=== PATIENT | female | born 1980 | race Caucasian/White ===

== ENCOUNTER → 2018-02-28 | Outpatient (CLI) | payer BC ==
--- NOTE | 2018-03-03 08:36 | MM ---
Reason for exam: screening (asymptomatic). Baseline mammogram. History: Patient had first child at age 31. Took hormonal contraceptives for 12 years. Physical Findings: Nurse did not find any significant physical abnormalities on exam. MG 3D Screening Mammo W/Cad Bilateral CC and MLO view(s) were taken. The breast tissue is extremely dense which could obscure a lesion on mammography. Finding: There are typically benign diffuse/scattered calcifications in both breasts with no suspicious groups. No suspicious abnormality. These results were verbally communicated with the patient and result sheet given to the patient on 02/28/18. ASSESSMENT: Benign, BI-RAD 2 RECOMMENDATION: Routine screening mammogram of both breasts in 1 year.
== END | disposition home or self-care (01) ==
LOC: RADMAMWWP 13:34
PROVIDERS: ATTEND Family Medicine
DX: Z12.31 Encounter for screening mammogram for malignant neoplasm of breast (principal)
CPT/HCPCS: 77063; 77067

== ENCOUNTER → 2019-04-16 | Outpatient (CLI) | payer BC ==
--- NOTE | 2019-04-17 10:53 | ECHOF ---
Referral Reason:R002. palpitations, R94.31 abnormal ekg MEASUREMENTS -------- HEIGHT: 165.1 cm WEIGHT: 79.4 kg BP: RVIDd: 2.3 cm (< 3.3) IVSd: 0.8 cm (0.6 - 1.1) LVIDd: 4.5 cm (3.9 - 5.3) LVPWd: 0.9 cm (0.6 - 1.1) IVSs: 1.1 cm LVIDs: 3.2 cm LVPWs: 1.0 cm LA Diam: 2.3 cm (2.7 - 3.8) LAESV Index (A-L): 17.73 ml/m Ao Diam: 2.8 cm (2.0 - 3.7) AV Cusp: 1.8 cm (1.5 - 2.6) LA Diam: 2.8 cm (2.7 - 3.8) MV EXCURSION: 18.330 mm (> 18.000) MV EF SLOPE: 103 mm/s (70 - 150) EPSS: 0.2 cm MV E Waqar: 0.52 m/s MV DecT: 189 ms MV A Waqar: 0.47 m/s MV E/A Ratio: 1.10 RAP: 5.00 mmHg RVSP: 21.42 mmHg FINDINGS -------- Sinus rhythm. This was a technically good study. LV size, wall thickness and systolic function are normal, with an EF greater than 55%. The left irena tricular size is normal. The right ventricle is normal in size. The left atrial size is normal. Normal LA size by volume 22+/-6 ml/m2. The right atrial size is normal. The aortic valve is trileaflet, and appears structurally normal. No aortic stenosis or regurgitation. There is trace mitral regurgitation. Trace tricuspid regurgitation present. There is no evidence of pulmonary hypertension. The right ventricular systolic pressure, as measured by Doppler, is 21.42mmHg. There is no pulmonic regurgitation present. The aortic root size is normal. There is no pericardial effusion. CONCLUSIONS -------- 1. LV size, wall thickness and systolic function are normal, with an EF greater than 55%. 2. The left ventricular size is normal. 3. The right ventricle is normal in size. 4. The left atrial size is normal. 5. Normal LA size by volume 22+/-6 ml/m2. 6. The right atrial size is normal. 7. The aortic valve is trileaflet, and appears structurally normal. No aortic stenosis or regurgitati on. 8. There is trace mitral regurgitation. 9. Trace tricuspid regurgitation present. 10. There is no evidence of pulmonary hypertension. 11. The right ventricular systolic pressure, as measured by Doppler, is 21.42mmHg. 12. There is no pulmonic regurgitation present. 13. The aortic root size is normal. 14. There is no pericardial effusion. OVEREDGE SEWER: Edilia Johnson RDCS
== END | disposition home or self-care (01) ==
LOC: RADECHMAIN 11:30
PROVIDERS: ATTEND Family Medicine
DX: R00.2 Palpitations (principal); R94.31 Abnormal electrocardiogram [ECG] [EKG]
CPT/HCPCS: 93306

== ENCOUNTER → 2019-04-21 | Outpatient (CLI) | payer BC ==
--- NOTE | 2019-04-23 11:45 | MM ---
Reason for exam: screening (asymptomatic). Last mammogram was performed 1 year and 2 months ago. History: Patient had first child at age 31. Took hormonal contraceptives for 12 years. Physical Findings: A clinical breast exam by your physician is recommended on an annual basis and results should be correlated with mammographic findings. MG 3D Screening Mammo W/Cad Bilateral CC and MLO view(s) were taken. Prior study comparison: February 28, 2018, bilateral MG 3d screening mammo w/cad. The breast tissue is extremely dense which could obscure a lesion on mammography. No significant changes when compared with prior studies. ASSESSMENT: Benign, BI-RAD 2 RECOMMENDATION: Routine screening mammogram of both breasts in 1 year.
== END | disposition home or self-care (01) ==
LOC: RADMAMWWP 14:33
PROVIDERS: ATTEND Obstetrics & Gynecology
DX: Z12.31 Encounter for screening mammogram for malignant neoplasm of breast (principal)
CPT/HCPCS: 77063; 77067

== ENCOUNTER → 2020-05-16 | Outpatient (CLI) | payer BC ==
--- NOTE | 2020-05-17 13:34 | MM ---
Reason for exam: screening (asymptomatic). Last mammogram was performed 1 year and 1 month ago. History: Patient had first child at age 31. Took hormonal contraceptives for 12 years. Physical Findings: A clinical breast exam by your physician is recommended on an annual basis and results should be correlated with mammographic findings. MG 3D Screening Mammo W/Cad Bilateral CC, MLO, and XCCL view(s) were taken. Prior study comparison: April 21, 2019, bilateral MG 3d screening mammo w/cad. February 28, 2018, bilateral MG 3d screening mammo w/cad. The breast tissue is heterogeneously dense. This may lower the sensitivity of mammography. 3D images with distortion 11-12 o'clock right breast posteriorly. Nodular prominence superior left MLO view. ASSESSMENT: Incomplete: need additional imaging evaluation, BI-RAD 0 RECOMMENDATION: Special view mammogram of both breasts. (3D) If lesion persists on supplemental views, image directed ultrasound is recommended. [facility] will attempt to contact patient to return for supplemental views and ultrasound if indicated.
== END | disposition home or self-care (01) ==
LOC: RADMAMWWP 16:36
PROVIDERS: ATTEND Family Medicine
DX: Z12.31 Encounter for screening mammogram for malignant neoplasm of breast (principal)
CPT/HCPCS: 77063; 77067

== ENCOUNTER → 2020-05-25 | Outpatient (CLI) | payer BC ==
--- NOTE | 2020-05-25 10:24 | MM ---
Reason for exam: additional evaluation requested from abnormal screening. Last mammogram was performed less than 1 month ago. History: Patient had first child at age 31. Took hormonal contraceptives for 12 years. Physical Findings: Nurse did not find any significant physical abnormalities on exam. MG 3D Work Up W/Cad GABRIELA Bilateral spot compression MLO and LM view(s) were taken. Spot compression CC view(s) were taken of the right breast. Prior study comparison: May 16, 2020, bilateral MG 3d screening mammo w/cad. April 21, 2019, bilateral MG 3d screening mammo w/cad. The breast tissue is heterogeneously dense. This may lower the sensitivity of mammography. Central distortion persists on spot 3D CC, less defined on spot 3D MLO, and not well seen on 3D lateral. Subtle 1.4cm low density nodularity superior left MLO possibly 11 o'clock. These results were verbally communicated with the patient and result sheet given to the patient on 05/25/20. ASSESSMENT: Incomplete: need additional imaging evaluation, BI-RAD 0 RECOMMENDATION: Ultrasound of both breasts.
--- NOTE | 2020-05-25 10:26 | USB ---
Reason for exam: additional evaluation requested from abnormal screening. History: Patient had first child at age 31. Took hormonal contraceptives for 12 years. US Breast Workup Limited GABRIELA Technologist: Charley Butler Right complete breast ultrasound includes all four quadrants, the retroareolar region and axilla. Finding demonstrates no cystic or solid lesion seen. Left limited breast ultrasound including focal area of concern, retroareolar and axilla demonstrates no cystic or solid lesion seen. Scanned whole right breast. Scanned 9-3 o'clock on the left. These results were verbally communicated with the patient and result sheet given to the patient on 05/25/20. ASSESSMENT: Suspicious, BI-RAD 4 RECOMMENDATION: Stereotactic core biopsy of the right breast. (3D/tomosynthesis guided right breast biopsy) Called Dr. Parker's office with mammographic findings and has scheduled an appointment for the patient for 06/01/20 at 3:[address] Mills. PRELIMINARY REPORT CALLED AND FAXED TO DR. MILLS ON 05/25/20.
== END | disposition home or self-care (01) ==
LOC: RADMAMWWP 08:18
PROVIDERS: ATTEND Family Medicine
DX: R92.8 Other abnormal and inconclusive findings on diagnostic imaging of breast (principal)
CPT/HCPCS: 77062; 77066

== ENCOUNTER → 2020-06-01 | Outpatient (CLI) | payer BC ==
[2020-06-01 15:25] VITALS: BP 132/91; PULSE 76; RESP 16; TEMP 98.3
--- NOTE | 2020-06-01 15:42 | P.GSHP ---
History of Present Illness H&P Date: 06/01/20 Chief Complaint: Abnormal right breast mammogram Susie is a 40 year-old white female seen in consultation for Dr. Parker [place] [address]. This was felt to be incomplete and additional imaging was recommended. They were concerns about the 11 to 12 o'clock position in the right breast posteriorly and a nodular prominence in the superior left breast. On 9920 bilateral diagnostic mammograms were performed. This revealed a 1.4 cm low density in the superior left breast at 11:00. Bilateral breast ultrasounds were recommended. These were performed on the same day. Breast ultrasound did not reveal any cystic or solid lesions of concern in either breast. It was felt that the findings were suspicious BIRADS 4 on the 3D eright breast and and stereotactic core biopsy of the right breast was recommended. 6 monthe follow up of hte left breast recommended after review with Dr. Ralph. The patient has not noted any lumps masses or nodules in either breast. She is not complaining of any skin changes or nipple discharge of concern. She had some mild mastitis in the past when she was breast-feeding many years ago this was in both breasts. She has not had any recent trauma or infection in the breast. Caffeine: 2 cups of coffee/day Nicotine: Stopped smoking 15 years ago Theophylline: Occasional Family history: sister: lymphoma maternal grandmother: melanoma metastatic Hormonal history: Menarche: 12 , breast fed: yes, age at first : 31 periods regular BCP: stopped 10 years ago used for 10 years hormones: none Surgical history: 1. Tubes in ears 2. egg RETRIEVAL medical history: none nicotine: none Alcohol: Occasional Drugs: Negative - Constitutional Constitutional: Denies chills, Denies fever - EENT Eyes: denies blurred vision, denies pain Ears: deny: decreased hearing, tinnitus Ears, nose, mouth and throat: Denies headache, Denies sore throat - Breasts Breasts: bilateral: as per HPI - Cardiovascular Cardiovascular: Denies chest pain, Denies shortness of breath - Respiratory Respiratory: Denies cough, Denies 7 - Gastrointestinal Gastrointestinal: Denies abdominal pain, Denies diarrhea, Denies nausea, Denies vomiting - Genitourinary (Female) Genitourinary: Denies dysuria, Denies hematuria - Menstruation Menstruation: Reports period normal - Musculoskeletal Musculoskeletal: Denies myalgias - Integumentary Integumentary: Denies pruritus, Denies rash - Neurological Neurological: Denies numbness, Denies weakness - Psychiatric Psychiatric: Reports anxiety, Reports depression - Endocrine Endocrine: Reports weight change, Denies fatigue - Hematologic/Lymphatic Comment: none - Allergic/Immunologic Comment: none Medications and Allergies Allergies Allergy/AdvReac Type Severity Reaction Status Date / Time No Known Allergies Allergy Verified 05/25/20 09:02 Surgical - Exam BMI 27.4 - General well developed, well nourished, no distress - Eyes normal ocular movement - ENT no hearing loss, no congestion - Neck no masses, trachea midline - Respiratory normal respiratory effort, clear to auscultation - Cardiovascular Rhythm: regular Heart Sounds: normal: S1, S2 - Abdomen Abdomen: soft, non tender, no guarding, no rigid, no rebound - Integumentary normal turgor - Neurologic no disoriented, no combative - Musculoskeletal normal gait, normal posture - Psychiatric oriented to time, oriented to person, oriented to place, speech is normal, memory intact Breast exam: BRA 36B inspection: grade 2 ptosis bilateral Palpation: Right breast: Multi-positional exam fibrocystic changes, no dominant masses or nodules of concern, Right axilla: No adenopathy of concern Left breast: Multi-positional exam fibrocystic changes, no dominant masses or nodules of concern Left axilla: No adenopathy of concern Results Mammogram and ultrasound reviewed with Dr. Ralph from radiology Assessment and Plan Assessment: Impression: 1. 3-D radiographic abnormality right breast 11 to 12 o'clock position 2. Left breast dense breast tissue superior nodularity to be followed with repeat left breast mammogram in 6 months Plan: 1. 3-D stereotactic right breast biopsy 2. Left breast mammogram in 6 months with physician exam at that time Risks and benefits of procedure discussed with the patient. She wishes to proceed. She understands risks include but are not limited to bleeding, infection, reaction to the anesthetic. In addition inability to visualize the spot again may result and no biopsy been performed and repeat mammogram in 6 months time. Cc: Dr. Parker encounter 35 minutes, > 50% of time in planning and counselling
== END | disposition home or self-care (01) ==
LOC: WWCWWP 14:55
PROVIDERS: ATTEND Surgery
DX: Z53.9 Procedure and treatment not carried out, unspecified reason (principal)

== ENCOUNTER → 2020-06-24 | Outpatient (CLI) | payer BC ==
[2020-06-24 14:37] VITALS: BP 152/103; PULSE 94; RESP 12; TEMP 98.2
--- NOTE | 2020-06-24 14:55 | P.PN ---
Subjective Progress Note Date: 06/24/20 Principal diagnosis: Radial scar right breast and stereotactic core biopsy Susie is a 40 year-old white female seen in consultation for Dr. Parker [place] [address]. This was felt to be incomplete and additional imaging was recommended. They were concerns about the 11 to 12 o'clock position in the right breast posteriorly and a nodular prominence in the superior left breast. On 9920 bilateral diagnostic mammograms were performed. This revealed a 1.4 cm low density in the superior left breast at 11:00. Bilateral breast ultrasounds were recommended. These were performed on the same day. Breast ultrasound did not reveal any cystic or solid lesions of concern in either breast. It was felt that the findings were suspicious BIRADS 4 on the 3D eright breast and and stereotactic core biopsy of the right breast was recommended. 6 monthe follow up of hte left breast recommended after review with Dr. Ralph. The patient has not noted any lumps masses or nodules in either breast. She is not complaining of any skin changes or nipple discharge of concern. She had some mild mastitis in the past when she was breast-feeding many years ago this was in both breasts. She has not had any recent trauma or infection in the breast. [place] [address]. Pathology revealed breast tissue with portions of radial scar and fibrocystic changes with moderate to florid intraductal hyperplasia. She tolerated the procedure well with no complaints. Caffeine: 2 cups of coffee/day Nicotine: Stopped smoking 15 years ago Theophylline: Occasional Family history: sister: lymphoma maternal grandmother: melanoma metastatic Hormonal history: Menarche: 12 , breast fed: yes, age at first : 31 periods regular BCP: stopped 10 years ago used for 10 years hormones: none Surgical history: 1. Tubes in ears 2. egg RETRIEVAL medical history: none nicotine: none Alcohol: Occasional Drugs: Negative - Constitutional Constitutional: Denies chills, Denies fever - EENT Eyes: denies blurred vision, denies pain Ears: deny: decreased hearing, tinnitus Ears, nose, mouth and throat: Denies headache, Denies sore throat - Breasts Breasts: bilateral: as per HPI - Cardiovascular Cardiovascular: Denies chest pain, Denies shortness of breath - Respiratory Respiratory: Denies cough, Denies 7 - Gastrointestinal Gastrointestinal: Denies abdominal pain, Denies diarrhea, Denies nausea, Denies vomiting - Genitourinary (Female) Genitourinary: Denies dysuria, Denies hematuria - Menstruation Menstruation: Reports period normal - Musculoskeletal Musculoskeletal: Denies myalgias - Integumentary Integumentary: Denies pruritus, Denies rash - Neurological Neurological: Denies numbness, Denies weakness - Psychiatric Psychiatric: Reports anxiety, Reports depression - Endocrine Endocrine: Reports weight change, Denies fatigue - Hematologic/Lymphatic Comment: none - Allergic/Immunologic Comment: none Objective - Vital Signs Vital signs: Vital Signs Temp 98.2 F 06/24/20 14:33 Pulse 94 06/24/20 14:33 Resp 12 06/24/20 14:33 BP 152/103 06/24/20 14:33 Pulse Ox 100 06/24/20 14:33 Intake & Output 06/23/20 06/24/20 06/24/20 18:59 06:59 18:59 Weight 77.111 kg - Exam BMI 27.4 - Constitutional General appearance: Present: average body habitus - EENT Eyes: Present: EOMI ENT: Present: hearing grossly normal - Neck Neck: Present: normal ROM - Respiratory Respiratory: bilateral: CTA - Cardiovascular Rhythm: regular Heart sounds: normal: S1, S2 - Integumentary Integumentary Comment(s): Biopsy site right breast is mild ecchymosis, small hematoma no evidence of any infection Integumentary: Present: normal turgor - Musculoskeletal Musculoskeletal: Present: gait normal - Psychiatric Psychiatric: Present: A&O x's 3, appropriate affect, intact judgment & insight Assessment and Plan Assessment: Impression: 1. Patient status post right breast area tactic core biopsy/radial scar Plan: 1. Needle localization excisional biopsy right breast radial scar, possible mastopexy, possible oncho plastic tissue transfer CC: Dr. Parker In benefits of the procedure discussed with the patient and her . They understand and wish to proceed. This will be scheduled in the near future. encounter 15 minutes > 50% of time in planning and counselling.
== END | disposition home or self-care (01) ==
LOC: WWCWWP 13:52
PROVIDERS: ATTEND Surgery
DX: Z53.9 Procedure and treatment not carried out, unspecified reason (principal)

== ENCOUNTER 2021-08-31 09:18 | Emergency (ER) | payer BC ==
[2021-08-31 09:37] VITALS: TEMP 98.3
--- NOTE | 2021-08-31 10:13 | XR ---
EXAMINATION TYPE: XR chest 2V DATE OF EXAM: 08/31/2021 COMPARISON: None HISTORY: 41-year-old female with chest pain TECHNIQUE: PA and lateral views FINDINGS: The cardiomediastinal silhouette, aorta, and pulmonary vasculature are within normal limits. Lungs an d pleural spaces are clear. IMPRESSION: No acute cardiopulmonary process.
[2021-08-31 10:17] LABS: Basophils % (A) 0 %; Eosinophils # (A) 0.1 k/uL (0-0.7); Eosinophils % (A) 1 %; HCT 45.6 % (34.0-46.0); HGB 15.3 gm/dL (11.4-16.0); Lymphocytes # (A) 1.3 k/uL (1.0-4.8); Lymphocytes % (A) 20 %; MCH 31.4 pg (25.0-35.0); MCHC 33.5 g/dL (31.0-37.0); MCV 93.7 fL (80.0-100.0); Mean Platelet Volume 7.8; Monocytes # (A) 0.5 k/uL (0-1.0); Monocytes % (A) 7 %; Neutrophils # (A) 4.8 k/uL (1.3-7.7); Neutrophils % (A) 70 %; Platelet Count 205 k/uL (150-450); RBC 4.87 m/uL (3.80-5.40); RDW 12.6 % (11.5-15.5); WBC 6.8 k/uL (3.8-10.6)
[2021-08-31] MEDS ORDERED: SODIUM CHLORIDE 0.9% 500 ML 500 ML IV ONE (10:23)
[2021-08-31 10:24] LABS: Potassium 4.3 mmol/L (3.5-5.1)
[2021-08-31 10:26] LABS: ALT 17 U/L (4-34); AST 25 U/L (14-36); African American GFR (CKD) >90 (>60 ml/min/1.73 sqM); Albumin 4.6 g/dL (3.5-5.0); Alkaline Phosphatase 90 U/L (38-126); Anion Gap 7 mmol/L; Blood Urea Nitrogen 16 mg/dL (7-17); Calcium 9.9 mg/dL (8.4-10.2); Carbon Dioxide 29 mmol/L (22-30); Chloride 103 mmol/L (98-107); Glucose 85 mg/dL (74-99); Magnesium 1.8 mg/dL (1.6-2.3); Non-African American GFR(CKD) >90 (>60 ml/min/1.73 sqM); Sodium 139 mmol/L (137-145); Total Bilirubin 0.5 mg/dL (0.2-1.3); Total Protein 7.7 g/dL (6.3-8.2)
[2021-08-31 10:32] LABS: INR 0.9 (<1.2); Partial Thromboplastin Time 23.6 sec (22.0-30.0); Prothrombin Time 9.5 sec (9.0-12.0)
--- NOTE | 2021-08-31 10:48 | ED ---
General Adult HPI - General Chief complaint: Chest Pain Stated complaint: elevated BP Time Seen by Provider: 08/31/21 09:42 Source: patient, RN notes reviewed, old records reviewed Mode of arrival: ambulatory Limitations: no limitations - History of Present Illness Initial comments: 41-year-old female who presents for evaluation of elevated blood pressure. She states that she checked her blood pressure at home and it was around 180 systolic. She did report a mild chest discomfort. No significant pain. She was diagnosed with coronavirus approximately one month ago and had a very mild course. She states that she's had some mildly elevated blood pressure readings over the past one year but is not currently being treated for high blood pressure. She states she has an appointment with her primary care physician this afternoon. She denies nausea vomiting. Denies diaphoresis. Denies lower extremity pain or swelling. - Related Data Home Medications Medication Instructions Recorded Confirmed Desvenlafaxine Succinate [Pristiq 50 mg PO QAM 06/01/20 08/31/21 ER] Minocycline [Minocin] 50 mg PO QAM 06/01/20 08/31/21 Allergies Allergy/AdvReac Type Severity Reaction Status Date / Time sulfamethoxazole Allergy Unknown Verified 08/31/21 10:17 [From ] Childhood trimethoprim [From ] Allergy Unknown Verified 08/31/21 10:17 Childhood Review of Systems ROS Statement: Those systems with pertinent positive or pertinent negative responses have been documented in the HPI. ROS Other: All systems not noted in ROS Statement are negative. Past Medical History Past Medical History: No Reported History Additional Past Medical History / Comment(s): Acne; History of Any Multi-Drug Resistant Organisms: None Reported Additional Past Surgical History / Comment(s): IVF 06/2010; Past Anesthesia/Blood Transfusion Reactions: No Reported Reaction Past Psychological History: Anxiety, Depression Smoking Status: Former smoker Past Alcohol Use History: Daily Past Drug Use History: None Reported - Past Family History Father Family Medical History: Hypertension Mother Family Medical History: No Reported History General Exam Limitations: no limitations General appearance: alert, in no apparent distress Head exam: Present: atraumatic, normocephalic Eye exam: Present: normal appearance, PERRL ENT exam: Present: normal exam Neck exam: Present: normal inspection. Absent: tenderness, meningismus Respiratory exam: Present: normal lung sounds bilaterally. Absent: respiratory distress, wheezes Cardiovascular Exam: Present: regular rate, normal rhythm GI/Abdominal exam: Present: soft. Absent: distended, tenderness Extremities exam: Present: normal inspection, normal capillary refill. Absent: pedal edema, joint swelling Neurological exam: Present: alert, oriented X3, CN II-XII intact. Absent: motor sensory deficit Psychiatric exam: Present: normal affect, normal mood Skin exam: Present: warm, dry, intact. Absent: cyanosis, diaphoretic Course Vital Signs 08/31/21 08/31/21 09:30 11:00 Temperature 98.3 F Pulse Rate 102 H 88 Respiratory 18 18 Rate Blood Pressure 152/103 156/95 O2 Sat by Pulse 99 98 Oximetry EKG Findings - EKG Comments: EKG Findings:: EKG: Normal sinus rhythm, rate of 92, OH interval 170, QRS duration 92, QTC 442, no ST segment elevation. Medical Decision Making - Medical Decision Making 41-year-old female with elevated blood pressure. No formal diagnosis of hypertension but she has had some up trending blood pressures over the past one year. She has mildly elevated blood pressure. Arrival. She had a vague chest discomfort and therefore workup was initiated. EKG was sinus rhythm, chest x- ray clear, she has a normal CBC, normal CMP, negative troponin. I did obtain a d-dimer as this patient recently had coronavirus is also negative. She is reassured. She has an appointment with her primary care physician this afternoon. - Lab Data Result diagrams: 08/31/21 09:58 08/31/21 09:58 Lab Results 08/31/21 08/31/21 08/31/21 Range/Units 09:58 09:58 09:58 WBC 6.8 (3.8-10.6) k/uL RBC 4.87 (3.80-5.40) m/uL Hgb 15.3 (11.4-16.0) gm/dL Hct 45.6 (34.0-46.0) % MCV 93.7 (80.0-100.0) fL MCH 31.4 (25.0-35.0) pg MCHC 33.5 (31.0-37.0) g/dL RDW 12.6 (11.5-15.5) % Plt Count 205 (150-450) k/uL MPV 7.8 Neutrophils % 70 % Lymphocytes % 20 % Monocytes % 7 % Eosinophils % 1 % Basophils % 0 % Neutrophils # 4.8 (1.3-7.7) k/uL Lymphocytes # 1.3 (1.0-4.8) k/uL Monocytes # 0.5 (0-1.0) k/uL Eosinophils # 0.1 (0-0.7) k/uL Basophils # 0.0 (0-0.2) k/uL PT 9.5 (9.0-12.0) sec INR 0.9 (<1.2) APTT 23.6 (22.0-30.0) sec D-Dimer 0.28 (<0.60) mg/L FEU Sodium 139 (137-145) mmol/L Potassium 4.3 (3.5-5.1) mmol/L Chloride 103 (98-107) mmol/L Carbon Dioxide 29 (22-30) mmol/L Anion Gap 7 mmol/L BUN 16 (7-17) mg/dL Creatinine 0.64 (0.52-1.04) mg/dL Est GFR (CKD-EPI)AfAm >90 (>60 ml/min/1.73 sqM) Est GFR (CKD-EPI)NonAf >90 (>60 ml/min/1.73 sqM) Glucose 85 (74-99) mg/dL Calcium 9.9 (8.4-10.2) mg/dL Magnesium 1.8 (1.6-2.3) mg/dL Total Bilirubin 0.5 (0.2-1.3) mg/dL AST 25 (14-36) U/L ALT 17 (4-34) U/L Alkaline Phosphatase 90 (38-126) U/L Troponin I (0.000-0.034) ng/mL NT-Pro-B Natriuret Pep pg/mL Total Protein 7.7 (6.3-8.2) g/dL Albumin 4.6 (3.5-5.0) g/dL 08/31/21 08/31/21 Range/Units 09:58 09:58 WBC (3.8-10.6) k/uL RBC (3.80-5.40) m/uL Hgb (11.4-16.0) gm/dL Hct (34.0-46.0) % MCV (80.0-100.0) fL MCH (25.0-35.0) pg MCHC (31.0-37.0) g/dL RDW (11.5-15.5) % Plt Count (150-450) k/uL MPV Neutrophils % % Lymphocytes % % Monocytes % % Eosinophils % % Basophils % % Neutrophils # (1.3-7.7) k/uL Lymphocytes # (1.0-4.8) k/uL Monocytes # (0-1.0) k/uL Eosinophils # (0-0.7) k/uL Basophils # (0-0.2) k/uL PT (9.0-12.0) sec INR (<1.2) APTT (22.0-30.0) sec D-Dimer (<0.60) mg/L FEU Sodium (137-145) mmol/L Potassium (3.5-5.1) mmol/L Chloride (98-107) mmol/L Carbon Dioxide (22-30) mmol/L Anion Gap mmol/L BUN (7-17) mg/dL Creatinine (0.52-1.04) mg/dL Est GFR (CKD-EPI)AfAm (>60 ml/min/1.73 sqM) Est GFR (CKD-EPI)NonAf (>60 ml/min/1.73 sqM) Glucose (74-99) mg/dL Calcium (8.4-10.2) mg/dL Magnesium (1.6-2.3) mg/dL Total Bilirubin (0.2-1.3) mg/dL AST (14-36) U/L ALT (4-34) U/L Alkaline Phosphatase (38-126) U/L Troponin I <0.012 (0.000-0.034) ng/mL NT-Pro-B Natriuret Pep 78 pg/mL Total Protein (6.3-8.2) g/dL Albumin (3.5-5.0) g/dL Disposition Clinical Impression: Hypertension Disposition: HOME SELF-CARE Condition: Good Instructions (If sedation given, give patient instructions): Hypertension (ED) Is patient prescribed a controlled substance at d/c from ED?: No Referrals: Kelvin Parker DO [Primary Care Provider] - 1-2 days Time of Disposition: 11:06
[2021-08-31 11:20] VITALS: BP 151/98; PULSE 81; RESP 16
== END 2021-08-31 11:20 | disposition home or self-care (01) ==
LOC: EC 09:18
DX: I10 Essential (primary) hypertension (principal); F32.A Depression, unspecified; F41.9 Anxiety disorder, unspecified; Z87.891 Personal history of nicotine dependence; Z79.899 Other long term (current) drug therapy; Z82.49 Family history of ischemic heart disease and other diseases of the circulatory system
CPT/HCPCS: 36415; 71046; 80053; 83735; 83880; 84484; 85025; 85379; 85610; 85730; 93005; 99284

== ENCOUNTER → 2023-01-16 | Outpatient (CLI) | payer BC ==
[2023-01-16 15:49] LABS: Basophils # (A) 0.02 X 10*3/uL (0.00-0.10); Basophils % (A) 0.4 %; Eosinophils # (A) 0.05 X 10*3/uL (0.04-0.35); Eosinophils % (A) 0.9 %; HCT 44.4 % (37.2-46.3); HGB 14.5 g/dL (12.0-15.0); Immature Grans, Automated 0.4 %; Lymphocytes # (A) 1.24 X 10*3/uL (0.90-5.00); Lymphocytes % (A) 22.4 %; MCH 30.5 pg (27.0-32.0); MCHC 32.7 g/dL (32.0-37.0); MCV 93.5 fL (80.0-97.0); Mean Platelet Volume 10.4 fL (9.5-12.2); Monocytes # (A) 0.41 X 10*3/uL (0.20-1.00); Monocytes % (A) 7.4 %; NRBC Per 100 WBC 0 /100 WBCS (0.0-0.0); Neutrophils # (A) 3.79 X 10*3/uL (1.80-7.70); Neutrophils % (A) 68.5 %; Platelet Count 229 X 10*3/uL (140-440); RBC 4.75 X 10*6/uL (4.10-5.20); RDW 12.9 % (11.5-14.5); WBC 5.53 X 10*3/uL (4.50-10.00)
[2023-01-16 16:00] LABS: ALT 22 U/L (8-44); AST 21 U/L (13-35); African American GFR (CKD) 107.9 (60.0-200.0); Albumin 4.6 g/dL (3.8-4.9); Albumin/Globulin Ratio 1.87 (1.60-3.17); Alkaline Phosphatase 96 U/L (41-126); BUN/Creat Ratio 21.28 Ratio (12.00-20.00); Blood Urea Nitrogen 16.6 mg/dL (9.0-27.0); Calcium 10.1 mg/dL (8.7-10.3); Carbon Dioxide 28.2 mmol/L (20.0-27.5); Chloride 100 mmol/L (96-109); Globulin 2.5 g/dL (1.6-3.3); Glucose 84 mg/dL (70-110); LDL Cholesterol,Calculated 121.7 mg/dL (0.0-131.0); Non-African American GFR(CKD) 93.1 (60.0-200.0); Potassium 4.6 mmol/L (3.5-5.5); Sodium 141 mmol/L (135-145); Total Protein 7.1 g/dL (6.2-8.2)
== END | disposition home or self-care (01) ==
LOC: LABWHC1 08:26
PROVIDERS: ATTEND Nurse Practitioner Family
DX: Z00.00 Encounter for general adult medical examination without abnormal findings (principal); I10 Essential (primary) hypertension
CPT/HCPCS: 36415; 80053; 80061; 84443; 85025

== ENCOUNTER 2024-01-04 19:03 | Emergency (ER) | payer BC ==
--- NOTE | 2024-01-04 19:37 | ED ---
ENT HPI <Luigi Serrano - Last Filed: 01/04/24 22:26> - General Source: patient, RN notes reviewed Mode of arrival: ambulatory Limitations: no limitations <Rhianna Warren - Last Filed: 01/04/24 22:59> - General Chief complaint: ENT Stated complaint: Throat pain Time Seen by Provider: 01/04/24 19:15 - History of Present Illness Initial comments: 43-year-old female with no significant past medical history presenting with sore throat x 1 day. Dates she was sent from urgent care for possible right-sided peritonsillar abscess. She is able to swallow and tolerate orals. Denies otalgia, cough, rhinorrhea. Denies fever. States she had a strep test done at the urgent care and was negative. (Rhianna Warren) - Related Data Home Medications Medication Instructions Recorded Confirmed Desvenlafaxine Succinate [Pristiq 50 mg PO QAM 06/01/20 08/31/21 ER] Minocycline [Minocin] 50 mg PO QAM 06/01/20 08/31/21 Previous Rx's Medication Instructions Recorded Amoxicillin 500 mg PO Q12HR 10 Days #20 capsule 01/04/24 Allergies Allergy/AdvReac Type Severity Reaction Status Date / Time sulfamethoxazole Allergy Unknown Verified 01/04/24 19:07 [From Septra] Childhood trimethoprim [From Mayra] Allergy Unknown Verified 01/04/24 19:07 Childhood Review of Systems ROS Other: All systems not noted in ROS Statement are negative. <Luigi Serrano - Last Filed: 01/04/24 22:26> ROS Other: All systems not noted in ROS Statement are negative. <Rhianna Warren - Last Filed: 01/04/24 22:59> ROS Statement: Those systems with pertinent positive or pertinent negative responses have been documented in the HPI. Past Medical History Past Medical History: Hypertension Additional Past Medical History / Comment(s): Acne; History of Any Multi-Drug Resistant Organisms: None Reported Additional Past Surgical History / Comment(s): IVF 06/2010; Past Anesthesia/Blood Transfusion Reactions: No Reported Reaction Past Psychological History: Anxiety, Depression Smoking Status: Former smoker Past Alcohol Use History: Daily Past Drug Use History: None Reported - Past Family History Father Family Medical History: Hypertension Mother Family Medical History: No Reported History <Rhianna Warren - Last Filed: 01/04/24 22:59> General Exam Limitations: no limitations General appearance: alert, in no apparent distress Head exam: Present: atraumatic, normocephalic, normal inspection Eye exam: Present: normal appearance, PERRL, EOMI. Absent: scleral icterus, conjunctival injection, periorbital swelling ENT exam: Present: mucous membranes moist, TM's normal bilaterally, other (Left tonsil 1+, right tonsil 2+, and non erythematous with no exudate bilaterally) Respiratory exam: Present: normal lung sounds bilaterally. Absent: respiratory distress, wheezes, rales, rhonchi, stridor Cardiovascular Exam: Present: regular rate, normal rhythm, normal heart sounds. Absent: systolic murmur, diastolic murmur, rubs, gallop, clicks Neurological exam: Present: alert, oriented X3, CN II-XII intact Psychiatric exam: Present: normal affect, normal mood Skin exam: Present: warm, dry, intact, normal color. Absent: rash <Rhianna Warren - Last Filed: 01/04/24 22:59> Course Vital Signs 01/04/24 01/04/24 19:05 20:46 Temperature 98.5 F Pulse Rate 90 71 Respiratory 20 20 Rate Blood Pressure 152/97 O2 Sat by Pulse 99 100 Oximetry Procedures - Incision & Drainage Consent Obtained: verbal consent Site: oral Size (cm): 2 Anesthetic Used: lidocaine 1% Amount (mLs): 1 Sterile Field Used?: No Ultrasound used: No Needle Aspiration Performed?: Yes Irrigation Performed?: No Insertion of drain: No Culture Obtained?: No Patient Tolerated Procedure: well, no complications <Luigi Serrano - Last Filed: 01/04/24 22:26> Medical Decision Making <Rhianna Warren - Last Filed: 01/04/24 22:59> - Medical Decision Making Was pt. sent in by a medical professional or institution (Dr. PA, [employer], urgent care, hospital, or fdc...) When possible be specific @ -Patient was sent by urgent care for right peritonsillar abscess Did you speak to anyone other than the patient for history (EMS, parent, family, police, friend...)? What history was obtained from this source @ -No Did you review nursing and triage notes (agree or disagree)? Why? @ -I reviewed and agree with nursing and triage notes Were old charts reviewed (outside hosp., previous admission, EMS record, old EKG, old radiological studies, urgent care reports/EKG's, fdc records)? Report findings @ -No old charts were reviewed Differential Diagnosis (chest pain, altered mental status, abdominal pain women, abdominal pain men, vaginal bleeding, weakness, fever, dyspnea, syncope, headache, dizziness, GI bleed, back pain, seizure, CVA, palpatations, mental health, musculoskeletal)? @ -Peritonsillar abscess, retropharyngeal abscess, strep pharyngitis, epiglottitis EKG interpreted by me (3pts min.). @ -None X-rays interpreted by me (1pt min.). @ -None done CT interpreted by me (1pt min.). @ -CT soft tissue of neck revealed no acute process U/S interpreted by me (1pt. min.). @ -None done What testing was considered but not performed or refused? (CT, X-rays, U/S, labs)? Why? @ -None What meds were considered but not given or refused? Why? @ -None Did you discuss the management of the patient with other professionals (professionals i.e. , PA, [employer], lab, RT, psych nurse, manager social media, hypertrichologist, teacher, consumer safety officer, case folder)? Give summary @ -No Was smoking cessation discussed for >3mins.? @ -No Was critical care preformed (if so, how long)? @ -No Were there social determinants of health that impacted care today? How? (Homelessness, low income, unemployed, alcoholism, drug addiction, transportation, low edu. Level, literacy, decrease access to med. care, [facility], rehab)? @ -No Was there de-escalation of care discussed even if they declined (Discuss DNR or withdrawal of care, Hospice)? DNR status @ -No What co-morbidities impacted this encounter? (DM, HTN, Smoking, COPD, CAD, Cancer, CVA, ARF, Chemo, Hep., AIDS, mental health diagnosis, sleep apnea, morbid obesity)? @ -None Was patient admitted / discharged? Hospital course, mention meds given and route, prescriptions, significant lab abnormalities, going to OR and other pertinent info. @ -Patient was discharged. Patient was seen and evaluated for sore throat x 1 day. Patient is afebrile on exam, vitals are stable. Exam reveals mild right- sided peritonsillar abscess. Strep testing negative in clinic. CT of soft tissue neck negative for acute process. Peritonsillar abscess drained via I&D, see procedure note. Tetanus was updated. Patient was prescribed amoxicillin. Strict return symptoms discussed. Patient discharged in stable condition. Case discussed with Dr. Dumont Undiagnosed new problem with uncertain prognosis? @ -No Drug Therapy requiring intensive monitoring for toxicity (Heparin, Nitro, Insulin, Cardizem)? @ -No Were any procedures done? @ -I&D of right tonsil performed, see procedure note Diagnosis/symptom? @ -Right peritonsillar abscess Acute, or Chronic, or Acute on Chronic? @ -Acute Uncomplicated (without systemic symptoms) or Complicated (systemic symptoms)? @ -Uncomplicated Side effects of treatment? @ -No Exacerbation, Progression, or Severe Exacerbation? @ -No Poses a threat to life or bodily function? How? (Chest pain, USA, MD, pneumonia, PE, COPD, DKA, ARF, appy, cholecystitis, CVA, Diverticulitis, Homicidal, Suicidal, threat to staff... and all critical care pts) @ -No (Rhianna Warren) - Lab Data Lab Results 01/04/24 Range/Units 19:32 Group A Strep (PCR) NOT DETECTED (Not Detectd) Disposition <Luigi Serrano - Last Filed: 01/04/24 22:26> Is patient prescribed a controlled substance at d/c from ED?: No Time of Disposition: 22:30 <Rhianna Warren - Last Filed: 01/04/24 22:59> Clinical Impression: Peritonsillar abscess Disposition: HOME SELF-CARE Condition: Stable Instructions (If sedation given, give patient instructions): Peritonsillar Abscess (ED) Additional Instructions: Please return to the Emergency Department if symptoms worsen or any other concerns. Prescriptions: Amoxicillin 500 mg PO Q12HR 10 Days #20 capsule Referrals: Kelvin Parker DO [Primary Care Provider] - 1-2 days
[2024-01-04 19:39] VITALS: TEMP 98.5
[2024-01-04] MEDS: BENZOCAINE SPRAY 1 CAN MUCOUS MEM PRN (21:19)
--- NOTE | 2024-01-04 21:24 | CT ---
EXAMINATION TYPE: CT soft tissue neck w con CT DLP: 252 mGycm, Automated exposure control for dose reduction was used. DATE OF EXAM: 01/04/2024 9:01 PM COMPARISON: . CLINICAL INDICATION:Female, 43 years old with history of peritonsillar abscess; [facility], Peritonsillar ab scess. TECHNIQUE: Standard enhanced CT of the neck. Axial sections with coronal and sagittal reformats were obtained. Contrast used:100 ml mL of Isovue 300 with IV Contrast, Oral contrast used: none. FINDINGS: Brain: Visualized portions are grossly unremarkable. Orbits: Unremarkable Sinuses: Unremarkable as seen. Mastoid air cells are clear. Spaces of the neck: Clear and symmetric. Pharyngeal fat is preserved. Musculoskeletal: Generally mild degenerative changes of the cervical spine, however there is signific ant chronic/degenerative change and deformity involving the C4-C7 levels with overall reversal of the normal cervical lordosis at these levels. Vertebral body heights at C4 and C5 appear maintained but there is grade 1 anterolisthesis of C4 on C5 with marginal osteophytes and facet arthropathy causing moderate spinal canal and neural foraminal stenosis. At C5-C6, there is grade 1 anterolisthesis of C5 on C6, accompanied by a chronically rounded appearance of the anterior superior corner of C6. Facet disease is also present. There is moderate to severe left neural foraminal stenosis, mild canal and r ight foraminal stenosis. At C6-C7, there is loss of disc space with anterior more than posterior disc marginal osteophytes. Query minimal retrolisthesis of C6 on C7. There is moderate bilateral neural f oraminal stenosis and canal stenosis at this level. If there is further concern, nonemergent MRI may be obtained. Lymph nodes: Multiple nonenlarged lymph nodes are seen along both anterior chains of the neck. No b ulky or necrotic adenopathy. Vascular structures: Visualized major arteries in the neck are patent without evidence of dissection or significant stenosis. Thoracic Inlet/airway: Airway is patent. The lung apices show no acute infiltrate or pneumothorax. Soft tissues/Thyroid: Thyroid appears unremarkable. There is no evidence of enhancing mass or abscess in the neck. Other: None significant. IMPRESSION: 1. No definite evidence of abscess or other significant abnormality of the neck soft tissues. 2. Chronic/degenerative changes in the cervical spine, as detailed above.
[2024-01-04] MEDS: LIDOCAINE 1% INJ 10MG/ML (20 ML MDV) SQ ONE (21:56)
[2024-01-04 23:01] VITALS: BP 161/100; PULSE 83; RESP 15
[2024-01-04] MEDS: DIPH,PERTUS(ACELL)TETVAC-LF 0.5 ML VIAL IM ONE (23:02)
== END 2024-01-04 23:07 | disposition home or self-care (01) ==
LOC: EC 19:03
DX: J36 Peritonsillar abscess (principal); Z87.891 Personal history of nicotine dependence; Z88.1 Allergy status to other antibiotic agents; Z88.2 Allergy status to sulfonamides; Z23 Encounter for immunization
CPT/HCPCS: 87651; 70491; 90715; 99284; 90471; 42700; J2001